=== PATIENT | male | born 1965 | race Caucasian/White ===

== ENCOUNTER 2020-07-08 22:55 | Emergency (ER) | payer BC ==
[2020-07-08] MEDS ORDERED: Sodium Chloride 0.9% 10 ML Syringe FLUSH PRN (23:58)
[2020-07-09] MEDS ORDERED: Furosemide 40 MG/4 ML VIAL IV ONE (00:42)
--- NOTE | 2020-07-09 00:48 | EDM.PDOC ---
ED HPI GENERAL MEDICAL PROBLEM - General Stated Complaint: GENERAL Time Seen by Provider: 07/08/20 23:49 Source of Information: Reports: Patient - History of Present Illness INITIAL COMMENTS - FREE TEXT/NARRATIVE: Brando is a 55 y/o male who comes to the ER with "leg pain". He reports to RN and [employer] that "they are moving in my leg". "I think they have moved and wrapped around my leg and are also in my groin." [employer] questioned patient further and he then reported that he has had scrotal/groin swelling for the last 1-2 days. He reports being treated with Ivermectin for a "tapeworm". He has several sores on his arms and legs and he reports the sores "are where the worms are coming out". He does not know what chronic medications he is on other than Ivermectin. He is supposed to be on Lasix, but has not taken that. He sees Meño Dior CNP at [facility] for primary care, but he reports he has not taken his diuretics for a long time. 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 He did go to a job a few days ago, but was not really able to finish it from the sounds of it. - Related Data Allergies Allergy/AdvReac Type Severity Reaction Status Date / Time No Known Allergies Allergy Verified 01/25/19 10:01 Past Medical History - Infectious Disease History Infectious Disease History: Reports: Other (See Below) (Tapeworm) Review of Systems - Review of Systems Review Of Systems: See Below Constitutional: Reports: No Symptoms Eyes: Reports: No Symptoms Ears: Reports: No Symptoms Nose: Reports: No Symptoms Mouth/Throat: Reports: No Symptoms Respiratory: Reports: Shortness of Breath Cardiovascular: Reports: Edema GI/Abdominal: Reports: No Symptoms Genitourinary: Reports: Other (Swollen scrotum) Musculoskeletal: Reports: No Symptoms Skin: Reports: Rash, Wound Neurological: Reports: No Symptoms Psychiatric: Reports: Other (Hallucinations (Feeling worms)) ED EXAM, GENERAL - Physical Exam Exam: See Below General Appearance: Alert, WD/WN (Adult male, appears much older than stated age.) Eye Exam: Bilateral Eye: PERRL Ears: Normal External Exam, Normal Canal, Hearing Grossly Normal Nose: Normal Inspection, Normal Mucosa Throat/Mouth: Normal Inspection, Normal Voice Head: Atraumatic, Normocephalic, Other (note erythematous rash to right side of face, some small open sores that appear to be healing on face.) Neck: Normal Inspection Respiratory/Chest: No Respiratory Distress, Decreased Breath Sounds, Rales (fine) Cardiovascular: Regular Rate, Rhythm GI/Abdominal: Normal Bowel Sounds, Soft (Male) Exam: Scrotal Swelling (scrotum is so edematous along with edema in the foreskin region, the penis appears quite retracted; note striae in the groin have orange peel appearance due to the edema) Rectal (Males) Exam: Deferred Back Exam: Other Extremities: Increased Warmth, Redness (bilaterally), Other (Note open sores that appear to be healing on legs and arms. 3+pitting edema noted bilateral lowe r legs to groin region) Psychiatric: Other (Unclear if patient is delusional regarding the his description of the worms or hallucinations.) Skin Exam: Warm, Dry, Rash Lymphatic: No Adenopathy EKG INTERPRETATION EKG Date: 07/09/20 Time: 00:33 Rhythm: Other (SR with LBBB) Rate (Beats/Min): 92 [place]: Normal P-Wave: Present QRS: LBBB ST-T: Normal QT: Normal Comparison: NA - No Prior EKG EKG Interpretation Comments: SR with LBBB Course - Vital Signs Text/Narrative:: 2349 The patient was seen on arrival to the ER. Labs, EKG, and CXR ordered. Unable to obtain clinic records from [facility] at this time. It is unclear if the patient is a poor historian or he is having some hallucinations regarding the "worms coming out". 1230 CXR reviewed, note very large heart and bilateral pulmonary congestion. Lasix 40mg IVP ordered and vyas placed. Note about 100 ml of concentrated morena urine in collection bag. Awaiting further labs, but will plan to transfer to [place]. Patient prefers [place]. 0100 Lab calls with Troponin=0.070. Will treat as NSTEMI, ASA ordered. Contacted [facility], no immediate beds available and will need to hold here until AM. 0115 [facility] contacted, Dr Rivera accepted the patient for transfer. Per discussion with Dr Rivera it is of note in the [facility] records that this patient was seen on 06/12/2020 for Acute Psychosis, so cannot exclude a psych diagnosis. Will send to [place] via [facility]. Stable upon departure from ER. - Orders/Labs/Meds Orders: Active Orders 24 hr Category Date Time Status EKG Documentation Completion [RC] STAT Care 07/08/20 23:58 Active Insert Vyas Catheter [Insert Urinary Catheter] [OM.PC] Care 07/08/20 23:58 Ordered Q24H Urinary Catheter Assessment [RC] ASDIRECTED Care 07/09/20 00:00 Active Chest 1V Frontal [CR] Stat Exams 07/08/20 23:58 Taken COMPREHENSIVE METABOLIC PN,CMP [CHEM] Stat Lab 07/08/20 23:58 Received CULTURE BLOOD [BC] Stat Lab 07/09/20 00:16 Received INR,PT,PROTHROMBIN TIME [COAG] Stat Lab 07/08/20 23:58 Received MAGNESIUM [CHEM] Stat Lab 07/08/20 23:58 Received PRO B-TYPE NATRIUR PEPT,BNPPRO [CHEM] Stat Lab 07/08/20 23:58 Received PTT,PARTIAL THROMBOPLSTIN TIME [COAG] Stat Lab 07/08/20 23:58 Received TROPONIN I [CHEM] Stat Lab 07/08/20 23:58 Received UA RFX YAYA AND CULT IF INDIC [URIN] Stat Lab 07/08/20 23:58 Ordered Furosemide [Lasix] Med 07/09/20 00:42 Once 40 mg IV ONETIME ONE Sodium Chloride 0.9% [Saline Flush] Med 07/08/20 23:58 Active 10 ml FLUSH ASDIRECTED PRN Saline Lock Insert [OM.PC] Stat Oth 07/08/20 23:58 Ordered Medication Orders Furosemide (Lasix) 40 mg IV ONETIME ONE Stop: 07/09/20 00:43 Sodium Chloride (Saline Flush) 10 ml FLUSH ASDIRECTED PRN PRN Reason: Keep Vein Open Labs: Laboratory Tests 07/09/20 Range/Units 00:16 WBC 8.2 (4.0-10.0) x10^3/uL RBC 4.43 L (4.5-6.0) x10^6/uL Hgb 13.0 L (14.0-18.0) g/dL Hct 39.6 L (40.0-52.0) % MCV 89.4 (78.0-93.0) fL MCH 29.3 (26.0-32.0) pg MCHC 32.8 (32.0-36.0) g/dL RDW Coeff of Ale 15.3 H (10.0-15.0) % Plt Count 177 (130-400) x10^3/uL Neut % (Auto) 83.1 H (50.0-80.0) % Lymph % (Auto) 9.9 L (25.0-50.0) % Coos % (Auto) 5.8 (2.0-11.0) % Eos % (Auto) 1.0 (0.0-4.0) % Baso % (Auto) 0.2 (0.2-1.2) % Meds: Medications Generic Name Dose Route Start Last Admin Trade Name Freq PRN Reason Stop Dose Admin Furosemide 40 mg 07/09/20 00:42 Lasix IV 07/09/20 00:43 ONETIME ONE Sodium Chloride 10 ml 07/08/20 23:58 Saline Flush FLUSH ASDIRECTED PRN Keep Vein Open - Radiology Interpretation Free Text/Narrative:: CXR Portable=enlraged heart (See radiology report) Departure - Departure Time of Disposition: 01:24 Disposition: DC/Tfer to Medicaid Nur Fac [facility] Clinical Impression: Parasite infection, Rash, Delusions, NSTEMI (non-ST elevated myocardial infarction) CHF (congestive heart failure) Qualifiers: Heart failure type: unspecified Heart failure chronicity: unspecified Qualified Code(s): I50.9 - Heart failure, unspecified - Discharge Information Referrals: PCP,Unobtain [Primary Care Provider] - Forms: Interfacility Transfer EMTALA - My Orders Last 24 Hours: My Active Orders 07/08/20 23:58 EKG Documentation Completion [RC] STAT Insert Vyas Catheter [Insert Urinary Catheter] [OM.PC] Q24H Chest 1V Frontal [CR] Stat COMPREHENSIVE METABOLIC PN,CMP [CHEM] Stat INR,PT,PROTHROMBIN TIME [COAG] Stat MAGNESIUM [CHEM] Stat PRO B-TYPE NATRIUR PEPT,BNPPRO [CHEM] Stat PTT,PARTIAL THROMBOPLSTIN TIME [COAG] Stat TROPONIN I [CHEM] Stat UA RFX YAYA AND CULT IF INDIC [URIN] Stat Sodium Chloride 0.9% [Saline Flush] 10 ml FLUSH ASDIRECTED PRN Saline Lock Insert [OM.PC] Stat 07/09/20 00:00 Urinary Catheter Assessment [RC] ASDIRECTED 07/09/20 00:16 CULTURE BLOOD [BC] Stat 07/09/20 00:42 Furosemide [Lasix] 40 mg IV ONETIME ONE - Assessment/Plan Last 24 Hours: My Active Orders 07/08/20 23:58 EKG Documentation Completion [RC] STAT Insert Vyas Catheter [Insert Urinary Catheter] [OM.PC] Q24H Chest 1V Frontal [CR] Stat COMPREHENSIVE METABOLIC PN,CMP [CHEM] Stat INR,PT,PROTHROMBIN TIME [COAG] Stat MAGNESIUM [CHEM] Stat PRO B-TYPE NATRIUR PEPT,BNPPRO [CHEM] Stat PTT,PARTIAL THROMBOPLSTIN TIME [COAG] Stat TROPONIN I [CHEM] Stat UA RFX YAYA AND CULT IF INDIC [URIN] Stat Sodium Chloride 0.9% [Saline Flush] 10 ml FLUSH ASDIRECTED PRN Saline Lock Insert [OM.PC] Stat 07/09/20 00:00 Urinary Catheter Assessment [RC] ASDIRECTED 07/09/20 00:16 CULTURE BLOOD [BC] Stat 07/09/20 00:42 Furosemide [Lasix] 40 mg IV ONETIME ONE Assessment:: 1)CHF 2)NSTEMI 3)Parasite Infection, per patient report 4)Delusions 5)Rash Plan: -Transfer to [facility] to Dr Rivera in ER
[2020-07-09 00:59] LABS: ANION GAP 13.9 mmol/L (10-20); CHLORIDE,CL 100 mmol/L (98-107); SODIUM,NA 138 mmol/L (136-145)
[2020-07-09] MEDS ORDERED: Aspirin 81 MG Tab.Chew PO ONE (01:29)
--- NOTE | 2020-07-09 08:23 | CR ---
[id number] RAD/RAD Chest PA or AP 1V EXAM: SINGLE VIEW CHEST. INDICATION: SHORTNESS OF BREATH COMPARISON: NO PREVIOUS SIMILAR EXAM IS AVAILABLE FINDINGS: The lungs are clear The cardiac silhouette is enlarged The aorta is normal IMPRESSION: CARDIOMEGALY NO PNEUMONIA OR EDEMA Dada Moore MD 07/09/20 0822 Thank you for allowing us to participate in the care of your patient.
== END 2020-07-09 02:12 ==
LOC: VM.ED 22:55
DX: I50.9 Heart failure, unspecified (principal); B89 Unspecified parasitic disease; R21 Rash and other nonspecific skin eruption; F22 Delusional disorders; I21.4 Non-ST elevation (NSTEMI) myocardial infarction
CPT/HCPCS: 51702; 71045; 80053; 81001; 83735; 83880; 84484; 85025; 85610; 85730; 87040; 93005; 93010; 96374; 99284; 99285; A9270; J1940